=== PATIENT | female | born 1995 ===

== ENCOUNTER 2017-01-27 18:38 | Emergency (ER) | payer SELFPAY ==
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
[2017-01-27 20:00] VITALS: BP 135/92
--- NOTE | 2017-01-27 20:53 | Diagnostic Imaging Report ---
MISAEL BURKS [facility] [address] [facility] [address] [address] Report Submission Date: Jan 27, 2017 7:34:15 PM CDT Patient Study Name: JAE GALVAN Date: Jan 27, 2017 7:19:44 PM CDT Modality Type: CR Gender: F Description: SKULL : 89 Institution: [facility] Physician: MISAEL BURKS Nasal bones, 3 views History: Fracture Findings: No fracture or abnormal bone production or destruction is identified. Impression: Normal. Electronically signed on Jan 27, 2017 7:34:15 PM CDT by: Bird ARELLANO
== END 2017-01-27 19:50 | disposition home or self-care (01) ==
LOC: ED 18:38
DX: S00.33XA Contusion of nose, initial encounter (principal); X58.XXXA Exposure to other specified factors, initial encounter; Y93.9 Activity, unspecified; Y99.9 Unspecified external cause status
CPT/HCPCS: 70160; 99283